=== PATIENT | male | born 1980 | race Two or more races ===

== ENCOUNTER 2025-06-24 10:01 | Outpatient (CLI) | payer OTHER | END 2025-06-24 10:08 | disposition home or self-care (01) | LOC: RAD 10:01 | DX: M54.51 Vertebrogenic low back pain (principal); M99.03 Segmental and somatic dysfunction of lumbar region; M99.04 Segmental and somatic dysfunction of sacral region; M99.05 Segmental and somatic dysfunction of pelvic region ==